=== PATIENT | female | born 1955 | race Caucasian/White ===

== ENCOUNTER → 2021-09-21 14:58 | Outpatient (CLI) | payer OTHER, SELFPAY ==
--- NOTE | 2021-09-21 | DI.MG.S_ITS ---
BILATERAL DIGITAL SCREENING MAMMOGRAM 3D/2D WITH CAD: 09/21/2021 CLINICAL: Routine screening. Family history of breast cancer. Comparison is made to exams dated: 10/30/2019 mammogram, 07/17/2018 mammogram, and 09/26/2016 mammogram - [facility]. There are scattered fibroglandular elements in both breasts. Current study was also evaluated with a Computer Aided Detection (CAD) system. There is a cluster of linear fine calcifications in the right breast at 1 o'clock anterior depth. No other significant masses, calcifications, or other findings are seen in either breast. IMPRESSION: INCOMPLETE: NEEDS ADDITIONAL IMAGING EVALUATION The cluster of linear fine calcifications in the right breast are indeterminate. Magnification and lateromedial views are recommended. Based on the Tyrer Cuzick model (a risk assessment model) the patient's lifetime risk is 12.9% and her 10 year risk is 6.6%. According to the ACR, ACS, and NCCN guidelines, an annual breast MRI exam along with mammogram is recommended if the patient's lifetime risk is 20% or greater. This exam was interpreted at Station ID: [id number]. NOTE: For mammograms, a report in lay terms will be sent to the patient. Approximately 15% of breast malignancies will not be visualized mammographically. In the management of a palpable breast mass, a negative mammogram must not discourage biopsy of a clinically suspicious lesion. Electronically Signed By: Anjali sotelo/:09/22/2021 10:30:57 letter sent: Additional Imaging Needed ACR BI-RADS Category 0: Incomplete 3340F
== END ==
PROVIDERS: PCP Family Medicine; Referring Provider Family Medicine; Visit Provider Family Medicine
DX: Z12.31 Encounter for screening mammogram for malignant neoplasm of breast (principal); Z78.0 Asymptomatic menopausal state; Z13.820 Encounter for screening for osteoporosis; Z80.3 Family history of malignant neoplasm of breast; M85.89 Other specified disorders of bone density and structure, multiple sites; Z92.23 Personal history of estrogen therapy
CPT/HCPCS: 77063; 77067; 77080

== ENCOUNTER → 2021-10-01 09:21 | Outpatient (CLI) | payer OTHER, SELFPAY ==
--- NOTE | 2021-10-01 | DI.MG.S_ITS ---
UNILATERAL RIGHT DIGITAL DIAGNOSTIC MAMMOGRAM 3D/2D WITH ADDITIONAL VIEWS: 10/01/2021 CLINICAL: Additional evaluation requested from prior study. Comparison is made to exams dated: 09/21/2021 mammogram - [facility], 10/30/2019 mammogram, 07/17/2018 mammogram, 09/26/2016 mammogram, and 07/02/2015 mammogram - [facility]. There are scattered fibroglandular elements in right breast. Possible calcifications in the right breast at 1 o'clock anterior depth. This is not seen in additional views. No other significant masses or calcifications are seen in the breast. IMPRESSION: NEGATIVE There is no mammographic evidence of malignancy. A 1 year screening mammogram is recommended. Exam findings were conveyed to the patient. Based on the Tyrer Cuzick model (a risk assessment model) the patient's lifetime risk is 12.9% and her 10 year risk is 6.6%. According to the ACR, ACS, and NCCN guidelines, an annual breast MRI exam along with mammogram is recommended if the patient's lifetime risk is 20% or greater. This exam was interpreted at Station ID: [id number]. NOTE: For mammograms, a report in lay terms will be sent to the patient. Approximately 15% of breast malignancies will not be visualized mammographically. In the management of a palpable breast mass, a negative mammogram must not discourage biopsy of a clinically suspicious lesion. Electronically Signed By: Femi Rosas M.D. slc/:10/01/2021 09:54:05 letter sent: Normal Exam ACR BI-RADS Category 1: Negative 3341F
== END ==
PROVIDERS: PCP Physician Assistant Medical; Referring Provider Physician Assistant Medical; Visit Provider Physician Assistant Medical
DX: R92.8 Other abnormal and inconclusive findings on diagnostic imaging of breast (principal)
CPT/HCPCS: 77065; G0279

== ENCOUNTER → 2022-11-17 12:42 | Outpatient (CLI) | payer OTHER, SELFPAY ==
--- NOTE | 2022-11-17 | DI.MG.S_ITS ---
BILATERAL DIGITAL SCREENING MAMMOGRAM 3D/2D WITH CAD: 11/17/2022 CLINICAL: Routine screening. Family history of breast cancer. Comparison is made to exams dated: 09/21/2021 mammogram - [facility], 10/30/2019 mammogram, and 07/17/2018 mammogram - [facility]. There are scattered areas of fibroglandular density in both breasts (category b / 25%-50% glandular tissue). Current study was also evaluated with a Computer Aided Detection (CAD) system. No significant masses, calcifications, or other findings are seen in either breast. There has been no significant interval change. IMPRESSION: NEGATIVE There is no mammographic evidence of malignancy. A 1 year screening mammogram is recommended. Based on the Tyrer Cuzick model (a risk assessment model) the patient's lifetime risk is 12.3% and her 10 year risk is 6.5%. According to the ACR, ACS, and NCCN guidelines, an annual breast MRI exam along with mammogram is recommended if the patient's lifetime risk is 20% or greater. This exam was interpreted at Station ID: [id number]. NOTE: For mammograms, a report in lay terms will be sent to the patient. Approximately 15% of breast malignancies will not be visualized mammographically. In the management of a palpable breast mass, a negative mammogram must not discourage biopsy of a clinically suspicious lesion. Electronically Signed By: Reyna darling/clint:11/17/2022 17:06:25 letter sent: Normal Exam ACR BI-RADS Category 1: Negative [id number]
== END ==
PROVIDERS: PCP Physician Assistant Medical; Referring Provider Physician Assistant Medical; Visit Provider Physician Assistant Medical
DX: Z12.31 Encounter for screening mammogram for malignant neoplasm of breast (principal); Z80.3 Family history of malignant neoplasm of breast
CPT/HCPCS: 77063; 77067

== ENCOUNTER → 2023-03-03 10:11 | Outpatient (CLI) | payer OTHER, SELFPAY ==
--- NOTE | 2023-03-03 | DI.NM.S_ITS ---
PROCEDURE: NM LOGAN PERF SPECT REST & STR Rest and exercise myocardial perfusion SPECT with gated imaging and ejection fraction RADIOPHARMACEUTICAL: 11.1 mCi Tc-99m sestamibi IV at rest and 24.7 mCi Tc-99m sestamibi IV at peak exercise. A one day-protocol was performed. INDICATIONS: Other chest pain TECHNIQUE: Radiopharmaceutical was injected at peak stress test, and also at rest. SPECT images were obtained. SPECT myocardial perfusion images were displayed in short axis, horizontal long axis, and vertical long axis views. Gated images were reviewed using niiu software. COMPARISON: None. CARDIAC STRESS: A standard Santana treadmill exercise tolerance test was performed by the patient under the supervision of an attending staff. The patient exercised for 3 minutes and 40 seconds; functional aerobic impairment (STEPHEN) is +41%. Hemodynamic data: There is normal blood pressure and heart rate response to exercise stress. Patient achieved 99% of maximum predicted heart rate at peak exercise. Symptoms: Patient denied chest pain during exercise. EKG: No diagnostic EKG changes of ischemia; no ectopy. FINDINGS: Raw data: There is good myocardial labeling by radiotracer. No significant motion artifacts. Nvbq-gj-lhanr ratio is 0.29 (normal is less than 0.38 for sestamibi tracer, and less than 0.50 for thallium tracer). Left ventricle function: Gated images demonstrate normal left ventricle wall thickening. No segmental wall motion abnormality. No transient ischemic dilation; TID is 0.57 (normal less than 1.3). The left ventricle resting end-diastolic volume is 66 mL. Left ventricle stress ejection fraction is 89%; normal values are above 45%. Myocardial perfusion: There is normal distribution of activity in the left and right ventricular myocardium. No fixed or reversible perfusion defects. IMPRESSION: Low risk, normal treadmill nuclear stress test 1) No perfusion evidence of ischemia or infarction. 2) Normal left ventricular size, wall motion, and systolic function (EF post stress 89%). 3) No ST changes during exercise or recovery. 4) No angina during the study. 5) Moderately reduced exercise tolerance (4.6METs, STEPHEN +41%). 99% of maximum predicted heart rate reached. Appropriate BP response to exercise. 6) No prior nuclear stress test available for comparison. Dictated by: Juan Daniel Sandoval MD on 03/03/2023 at 16:23 Approved by: Juan Daniel Sandoval MD on 03/03/2023 at 16:26
== END ==
LOC: NUCM 10:11
PROVIDERS: PCP Physician Assistant Medical; Referring Provider Physician Assistant Medical; Visit Provider Physician Assistant Medical
DX: R07.89 Other chest pain (principal)
CPT/HCPCS: 78452; 93017; A9502

== ENCOUNTER → 2023-04-14 14:06 | Outpatient (CLI) | payer OTHER, SELFPAY ==
--- NOTE | 2023-04-14 | DI.CT.S_ITS ---
PROCEDURE: CT ANGIO CHEST PE PROTOCOL INDICATIONS: DYSPNEA ON EXERTION TECHNIQUE: After the administration of intravenous contrast, 2 mm thick sections acquired from the pulmonary apices to the posterior costophrenic angles. 3-dimensional maximum intensity projection (MIP) coronal and sagittal reformats were then acquired through the thorax. For radiation dose reduction, the following was used: automated exposure control, adjustment of mA and/or kV according to patient size. COMPARISON: None. FINDINGS: Image quality: Diagnostic. Pulmonary arteries: Pulmonary arteries are normal in size, and demonstrate no intraluminal filling defects to suggest central pulmonary embolism. Lower Neck: No enlarged lymph nodes. Thyroid: No thyroid nodules which require sonographic follow up, per consensus guidelines. Axillae: No enlarged lymph nodes. Chest Wall: Unremarkable. Bones: Unremarkable. Lungs and Pleura: No pneumothorax or pleural effusions. No consolidation or pulmonary nodules. Geographic ground-glass radiopacities are present within the posterior medial aspect of the right lower lobe. There is platelike atelectasis at the left lung base. Heart: Heart size is normal. No pericardial effusion. Thoracic Vessels: No aortic aneurysm. Mediastinum and Jessie: No enlarged lymph nodes. Esophagus: No wall thickening. There is a small hiatal hernia. Upper Abdomen: Visualized upper abdomen solid organs and bowel loops appear normal. IMPRESSION: 1. No acute pulmonary embolus. 2. No pulmonary nodules which require follow-up. 3. Geographic ground-glass radiopacities at the right lung base which may be associated with air trapping. If further characterization is warranted, nonemergent high-resolution CT of the chest could be used. Dictated by: Yanet Schreiber M.D. on 04/14/2023 at 16:33 Approved by: Yanet Schreiber M.D. on 04/14/2023 at 16:38
[2023-04-14 15:43] LABS: Estimated Glomerular Filt Rate > 60 mL/min (>60)
== END ==
PROVIDERS: Radiology Diagnostic Radiology; PCP Physician Assistant Medical; Referring Provider Physician Assistant Medical; Visit Provider Physician Assistant Medical
DX: R06.09 Other forms of dyspnea (principal); K44.9 Diaphragmatic hernia without obstruction or gangrene
CPT/HCPCS: 71275; 82565

== ENCOUNTER → 2023-06-14 14:21 | Outpatient (CLI) | payer OTHER, SELFPAY ==
--- NOTE | 2023-06-14 14:24 | DI.CT.S_ITS ---
PROCEDURE: CT CHEST W CON INDICATIONS: Other forms of dyspnea TECHNIQUE: After the administration of intravenous contrast, 5 mm thick sections acquired from the pulmonary apices to the posterior costophrenic angles. 1 mm axial lung, 5 mm thick coronal and sagittal reformats and 7 mm axial MIP were acquired. For radiation dose reduction, the following was used: automated exposure control, adjustment of mA and/or kV according to patient size. COMPARISON: [facility], CT, CT ANGIO CHEST PE PROTOCOL, 04/14/2023, 16:15. FINDINGS: Image quality: Diagnostic. Lower Neck: No enlarged lymph nodes. Thyroid: No thyroid nodules which require sonographic follow up, per consensus guidelines. Axillae: No enlarged lymph nodes. Chest Wall: Unremarkable. Bones: Unremarkable. Lungs and Pleura: No pneumothorax or pleural effusions. Previously seen areas of ground-glass attenuation at the right lung base are not redemonstrated, likely related to non breath hold technique in subsegmental atelectasis on the prior exam. No acute consolidation. No suspicious pulmonary nodule that requires dedicated imaging follow-up. Heart: Heart size is normal. No pericardial effusion. Thoracic Vessels: The aorta and pulmonary arteries demonstrate normal size. Mediastinum and Jessie: No enlarged lymph nodes. Esophagus: No wall thickening. No hiatal hernia. Upper Abdomen: Visualized upper abdomen solid organs and bowel loops appear normal. IMPRESSION: No acute abnormality identified in the chest. Previously seen areas of ground-glass attenuation of the right lung base not seen on the current exam, although air trapping is not excluded on this single inspiratory phase CT. Approved by: Aaron Escobedo M.D. on 06/14/2023 at 21:21
[2023-06-14 14:45] LABS: Estimated Glomerular Filt Rate > 60 mL/min (>60)
== END ==
LOC: CT 14:22
PROVIDERS: Radiology Diagnostic Radiology; PCP Physician Assistant Medical; Referring Provider Physician Assistant Medical; Visit Provider Physician Assistant Medical
DX: R06.09 Other forms of dyspnea (principal)
CPT/HCPCS: 36415; 71260; 82565; Q9967

== ENCOUNTER → 2023-11-21 12:53 | Outpatient (CLI) | payer OTHER, SELFPAY ==
--- NOTE | 2023-11-21 12:54 | DI.MG.S_ITS ---
BILATERAL DIGITAL SCREENING MAMMOGRAM 3D/2D WITH CAD: 11/21/2023 CLINICAL: Routine screening. Family history of breast cancer. Comparison is made to exams dated: 11/17/2022 mammogram, 09/21/2021 mammogram - [facility], 10/30/2019 mammogram, 07/02/2015 mammogram, and 07/17/2018 mammogram - [facility]. There are scattered areas of fibroglandular density (category b / 25%-50% glandular tissue). Current study was also evaluated with a Computer Aided Detection (CAD) system. No significant masses, calcifications, or other findings are seen in either breast. There has been no significant interval change. IMPRESSION: NEGATIVE There is no mammographic evidence of malignancy. A 1 year screening mammogram is recommended. Based on the Tyrer Cuzick model (a risk assessment model) the patient's lifetime risk is 11.6% and her 10 year risk is 6.5%. According to the ACR, ACS, and NCCN guidelines, an annual breast MRI exam along with mammogram is recommended if the patient's lifetime risk is 20% or greater. This exam was interpreted at Station ID: [id number]. NOTE: For mammograms, a report in lay terms will be sent to the patient. Approximately 15% of breast malignancies will not be visualized mammographically. In the management of a palpable breast mass, a negative mammogram must not discourage biopsy of a clinically suspicious lesion. Electronically Signed By: Femi bird/clint:11/21/2023 15:53:10 letter sent: Normal Exam ACR BI-RADS Category 1: Negative
== END ==
PROVIDERS: PCP Physician Assistant Medical; Referring Provider Physician Assistant Medical; Visit Provider Physician Assistant Medical
DX: Z12.31 Encounter for screening mammogram for malignant neoplasm of breast (principal); Z80.3 Family history of malignant neoplasm of breast
CPT/HCPCS: 77063; 77067

== ENCOUNTER → 2024-06-06 12:39 | Outpatient (CLI) | payer OTHER, SELFPAY ==
--- NOTE | 2024-06-06 12:40 | DI.MRI.S_ITS ---
PROCEDURE: MR CERVICAL SPINE WO CON INDICATIONS: CERVICALGIA,RADICULOPATHY-CERVICAL TECHNIQUE: Noncontrast sagittal T1 spin echo and T2 fast spin echo, sagittal STIR, foraminal oblique sagittal T2 fast spin echo, and axial gradient echo or T2 fast spin echo through the cervical spine. COMPARISON: None. FINDINGS: Image quality: Excellent Straightening of the cervical spine. Mild anterolisthesis of C2 on C3. Mild retrolisthesis of C4 on C5. Mild anterolisthesis of C6 on C7, C7 on T1, T1 on T2 and T2 on T3 and T3 on T4. Vertebral body height of the cervical spine are well maintained. Multilevel mild fibrovascular endplate change, most pronounced at C6-7. Multilevel disc bulge and disc desiccation. Cord signal: Unremarkable C2-3: Moderate right, severe left facet arthropathy. No central canal stenosis. No neural foraminal stenosis. C3-4: Moderate bilateral facet arthropathy. Posterior disc uncovering, resulting in mass effect on the ventral cord. Moderate central canal stenosis. Severe right neural foraminal stenosis. No left neural foraminal stenosis. C4-5: Posterior disc osteophyte complex, asymmetric to the right. Severe central canal stenosis. Bilateral uncovertebral arthropathy. Severe right neural foraminal stenosis. No left neural foraminal stenosis. C5-6: Posterior disc osteophyte complex. Severe central canal stenosis. Bilateral uncovertebral arthropathy. Severe right, moderate left neural foraminal stenosis. C6-7: Posterior disc osteophyte complex. Moderate central canal stenosis. Mild right neural foraminal stenosis. No left neural foraminal stenosis. C7-T1: Posterior disc osteophyte complex. Mild central canal stenosis. No neural foraminal stenosis. Other soft tissue findings: Unremarkable IMPRESSION: 1. Multilevel degenerative changes of the cervical spine, with severe central canal stenosis at C4-5 and C5-6. 2. Multilevel up to severe neural foraminal stenosis as described above. Dictated by: Anna Pandey M.D. on 06/06/2024 at 15:26 Approved by: Anna Pandey M.D. on 06/06/2024 at 15:37
== END ==
PROVIDERS: PCP Physician Assistant Medical; Referring Provider Physician Assistant Medical; Visit Provider Physician Assistant Medical
DX: M48.02 Spinal stenosis, cervical region (principal); M47.22 Other spondylosis with radiculopathy, cervical region; M54.2 Cervicalgia
CPT/HCPCS: 72141

== ENCOUNTER → 2024-06-13 11:31 | Outpatient (CLI) | payer OTHER, SELFPAY ==
--- NOTE | 2024-06-13 11:32 | DI.RAD.S_ITS ---
PROCEDURE: XR THORACIC SPINE 3V INDICATIONS: RIB PAIN TECHNIQUE: 3 views of the thoracic spine were acquired. COMPARISON: None. FINDINGS AND IMPRESSION: Possible age-indeterminate superior endplate deformity at T5. No traumatic subluxation. Mild overall spondylosis with mostly disc space height loss and osteophytes. No suspicious soft tissue findings. Aortic calcifications are seen. If there is high concern for further derangement, consider MRI evaluation. Dictated by: Jg Baldwin M.D. on 06/13/2024 at 13:16 Approved by: Jg Baldwin M.D. on 06/13/2024 at 13:17
== END ==
PROVIDERS: PCP Physician Assistant Medical; Referring Provider Physical Medicine & Rehabilitation; Visit Provider Physical Medicine & Rehabilitation
DX: M47.814 Spondylosis without myelopathy or radiculopathy, thoracic region (principal); I70.0 Atherosclerosis of aorta; R07.81 Pleurodynia
CPT/HCPCS: 72072

== ENCOUNTER → 2024-07-02 13:02 | Outpatient (CLI) | payer OTHER, SELFPAY ==
--- NOTE | 2024-07-02 13:03 | DI.MRI.S_ITS ---
PROCEDURE: MR THORACIC SPINE WO CON INDICATIONS: T 5 fx TECHNIQUE: Noncontrast sagittal T1 spine echo and T2 fast spin echo, sagittal STIR, and T2 fast spin echo through the thoracic spine. COMPARISON: [facility], CR, XR THORACIC SPINE 3V, 06/13/2024, 11:28. FINDINGS: Image quality: Excellent. Alignment and Curvature: There is normal bony alignment. Bone Marrow: Marrow is of normal overall signal. No acute vertebral body compression fractures. Prior radiographic appearance of T5 likely related to superimposed osseous structures. Mild multilevel degenerative endplate changes. Spinal Cord: Visualized spinal cord is normal in size and signal. Paraspinous Soft Tissues: No paravertebral masses. Miscellaneous: On axial images, central canal and foramina appear widely patent at all scanned levels. IMPRESSION: 1. No acute vertebral body compression fracture. Prior radiographic appearance likely related to superimposed osseous structures. 2. Mild multilevel spondylosis without significant spinal canal stenosis or neural foraminal narrowing. Approved by: Aaron Escobedo M.D. on 07/02/2024 at 16:46
== END ==
LOC: MRI 13:03
PROVIDERS: Family Provider Physician Assistant Medical; PCP Physician Assistant Medical; Referring Provider Physician Assistant Medical; Visit Provider Physical Medicine & Rehabilitation
DX: S22.000A Wedge compression fracture of unspecified thoracic vertebra, initial encounter for closed fracture (principal); M47.814 Spondylosis without myelopathy or radiculopathy, thoracic region
CPT/HCPCS: 72146

== ENCOUNTER → 2024-08-08 13:39 | Outpatient (CLI) | payer OTHER, SELFPAY | LOC: PHYS 13:40 | PROVIDERS: Family Provider Physician Assistant Medical; PCP Physician Assistant Medical; Referring Provider Physical Medicine & Rehabilitation; Visit Provider Physical Medicine & Rehabilitation | DX: M48.02 Spinal stenosis, cervical region (principal); M54.12 Radiculopathy, cervical region | CPT/HCPCS: 95885; 95886; 95912 ==

== ENCOUNTER 2024-09-23 13:00 | Outpatient (RCR) | payer OTHER, SELFPAY ==
--- NOTE | 2024-08-22 18:48 | PT.OIE ---
Current Diagnoses Spinal stenosis, cervical region (08/22/24) Radiculopathy, cervical region (08/22/24) Past Medical History (Last Updated 06/17/24 @ 14:16 by Angel Sahni DO) PMR (polymyalgia rheumatica) Spinal stenosis of cervical region with radiculopathy Thoracic compression fracture Visit Care Team Role Provider Type Kathy Garza PA-C Family Provider Non-Staff Primary Care Provider Specialty: Medical Address: [address] [place] [address] [address], [place], [address] Email: Angel Sahni DO Attending Provider Physician Referring Provider Specialty: Interventional Radiology Physiatry Pain Management Address: [address], [place], [address] Email: [email or web address] Physical Therapy Initial Evaluation PT-OP-A Visit Information Start: 08/19/24 19:21 Freq: Status: Active Protocol: Document 08/22/24 11:38 LRN (Rec: 08/22/24 12:35 LRN Laptop) Out-Patient Physical Therapy Visit Information Visit Information Visit Type Initial Evaluation Visit Start Time 11:38 Visit Stop Time 12:29 Visit Number 1 Evaluation Information Evaluation Date 08/22/24 Precautions Precautions 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 PT-OP-B Current Condition Start: 08/19/24 19:21 Freq: Status: Active Protocol: Document 08/22/24 11:38 LRN (Rec: 08/22/24 12:35 LRN Laptop) Current Condition History of Current Condition Onset Date Neck pain 4 wks ago, R shoulder pain 2-3 yrs ago. Current Complaints R shoulder pain standing and neck pain looking left, up or down. History of Current R shoulder pain started the past 2-3 yrs of insidious Condition onset after standing for awhile, a dull ache that worsens until she sit or lays back against a back rest , or lays down. L sided neck pain for the past several weeks turning to the L catches on the L side causing her to stop turning her head, a quick sharp pain, followed by a dull pain. Looking up and down causes a dull pain. Retired, [employer] business trainer for a medical program, running the legal receptionist office. Prior Treatments and CT scan and X-rays - Wedge compression fracture of T5- Tests T6 vertebra and spinal stenosis cervical spine. EMG - 1 wk ago (was told it was normal). Future Testing and Appt with Dr. Sahni September 2024 for follow up on nevve Treatments Planned conduction EMG. Treatment Goals Patient/Caregiver Pt goals: Goals Be able to look left driving or as passenger looking back to see grandson w/o sharp pain. Educated in method to reduce strain on the neck with reading. Be able to walk around to shop for greater than 20 minutes before back hurts requiring her to go back to her car. Be able to go into [employer] for shopping for 15' or more. Personal Factors Other Personal Prosthetic L eye; therefore must move head to see vs Factors That May eyes. Effect Therapy/ Inflammation R eye controlled by meds and antibiotic. Recovery Compression fx of T4-T5. PT-OP-C Subjective Start: 08/19/24 19:21 Freq: Status: Active Protocol: Document 08/22/24 11:38 LRN (Rec: 08/22/24 12:35 LRN Laptop) Patient Questionnaires Neck Disability Index NDI Score 10 Neck Disability 20 to 39% Impaired (Score 10-19) Index Impairment OP-PT Pain Assessment Pain Assessment Grid Paper Pain Yes Assessment Grid Completed Location R shoulder Pain Location Posterior shdr down spine to medial border of scapula Details Intensity 4 Scale Used Numeric (0 - 10) Description Aching Frequency Constant L neck Pain Location L lower lateral side of neck and posteriorly Details Intensity 6 Scale Used Numeric (0 - 10) Description Aching,Dull,Sharp,Stabbing Frequency Intermittent Pain Duration Sharp is quick, dull aching is lingering pain PT-OP-H Neuro Start: 08/19/24 19:21 Freq: Status: Active Protocol: Document 08/22/24 11:38 LRN (Rec: 08/22/24 12:35 LRN Laptop) Sensation Evaluation Comments Summary Comments Tingling in the L hand (dorsal and volar), sometimes tingling down the outside of the L arm. PT-OP-J Posture/Palpation/Skin Start: 08/19/24 19:21 Freq: Status: Active Protocol: Document 08/22/24 11:38 LRN (Rec: 08/22/24 12:35 LRN Laptop) Posture Evaluation Position Standing T-Spine Posture Increased Kyphosis L-Spine Posture Increased Lordosis,Shifted Right Pelvis Posture Anteriorly Tilted Knee Posture (L) Genu Valgus,(R) Genu Valgus Ankle/Foot Posture (L) Calcaneal Eversion,(R) Calcaneal Eversion Palpation Assessment Location Neck Palpation Location Tender at L UT w/passive neck R SB, and mildly R UT w/ passive L SB Palpation Findings Tenderness Palpation Details Tight R upper cerivcal with rotation and L lower cervicals with rotation. PT-OP-K Range of Motion Start: 08/19/24 19:21 Freq: Status: Active Protocol: Document 08/22/24 11:38 LRN (Rec: 08/22/24 12:35 LRN Laptop) Cervical Spine Range of Motion Cervical Spine Active Degrees Testing Position Sitting Flexion 16 Extension 40 Rotation Left 45 Rotation Right 38 Lateral Flexion Left 15 Lateral Flexion 20 Right PT-OP-M Strength Start: 08/19/24 19:21 Freq: Status: Active Protocol: Document 08/22/24 11:38 LRN (Rec: 08/22/24 12:35 LRN Laptop) Cervical Spine Strength Cervical Spine Manual Muscle Testing Testing Position Sitting Comments Generally 5/5 PT-OP-Q Treatments Start: 08/19/24 19:21 Freq: Status: Active Protocol: Document 08/22/24 11:38 LRN (Rec: 08/22/24 12:35 LRN Laptop) Therapeutic Exercises Supine Exercises Cervical AROM Supine Exercise Name Rotation & SB Side bilateral Reps/Minutes Short hold stretch not into pain x 3 Self-Care/Home Management Treatment Education Other Education Discussed results of evaluation, goals, treatment, and plan of care (POC) with pt; pt agreeable to evaluation, goals, treatment and POC. Activities Self-Care/Home Issued & reviewed HEP: C. AROM - rotation, SB stretch Management with caution to not stretch/move into pain. Activities PT-OP-T Assessment and Plan Start: 08/19/24 19:21 Freq: Status: Active Protocol: Document 08/22/24 11:38 LRN (Rec: 08/22/24 12:35 LRN Laptop) Physical Therapy Assessment Rehab Potential Rehabilitation Excellent Potential Evaluation Complexity Number of Personal 3 or More Factors/ Comorbidities Number of Body 4 or More Systems Impaired Clinical Evolving Presentation at Evaluation Impairments Impairments Activity Tolerance,Pain,Posture,ROM,Soft Tissue Mobility,Strength,Transfers Goals Three Impairment Decreased tolerance to walking activities (15' max at [employer], 20' grocery) Short Term Goal (STG Be able to go into [employer] for shopping for 15' or more. ) STG Duration 10/03/24 Clinical Pharmacy Coordinator Goal (LTG) Be able to walk around to shop for greater than 20 minutes before back hurts requiring her to go back to her car. LTG Duration 11/14/24 Two Impairment Decreased neck mobility due to sharp pain w/L rot. Short Term Goal (STG Educated in method to reduce strain on the neck with ) reading. STG Duration 10/03/24 Clinical Pharmacy Coordinator Goal (LTG) Be able to look left driving or as passenger looking back to see grandson w/o sharp pain. LTG Duration 11/14/24 One Impairment Lacks appropriate self care HEP. Short Term Goal (STG Pt will be educated in self care pain management to ) help reduce upper back pain with onset. STG Duration 10/03/24 Clinical Pharmacy Coordinator Goal (LTG) Pt will be independent and consistent with a self care HEP for neck and upper back/shoulder ex's. LTG Duration 11/14/24 Assessment Summary Assessment Pt is a 69 yo female who presents with R shoulder pain, probably from from Wedge compression fracture of T5-T6 vertebra and spinal stenosis, also with EMG noted numbness and tingling in the hands from nerve at the elbow and not the neck. Cervical R rot & L SB limited. The pt will benefit from skilled physical therapy to improve posture, strength, joint mobility (cervical spine) and education for self care to reduce pain and improve function. Physical Therapy Plan Frequency and Duration Frequency of 2x/Week Treatment Duration of 12 treatment (weeks) Plan of Care Start 08/22/24 Date Plan of Care End 11/14/24 Date Therapeutic Interventions Therapeutic Home Exercise Program,Manual Therapy,Neuromuscular Re- Interventions education,Self-Care/Home Management,Soft Tissue Mobilization,Taping,Therapeutic Activities,Therapeutic Exercises Modalities Cold Pack/Ice Massage,Hot Packs,Ultrasound Next Visit Focus/Plan Next Note Type Treatment Note Next Visit Plan Next: Assess shoulder strength, Transfer training, Initiate thoracic ext exercise (supine), shoulder ROM, and cervical mobility ex's. Manual: Gentle cervical stretching and traction to assess change in hand sensation. Self care: Hot/cold treatment at elbows if appropriate. Pt educated in pain management ( cyotherapy, MH) for upper back pain. POC: Pt education (pain mgmt, HEP), Manual therapy ( STM/?JMT cervical spine), Therapeutic Exercises (to improve upper back posture & strength), Therapeutic Activities (transfers, ADLs, body mechanics), Neuromuscular Reeducation.
--- NOTE | 2024-08-22 18:48 | PT.OPPOC ---
Physical, Occupational & Speech Therapy At [facility] Current Diagnoses Spinal stenosis, cervical region (08/22/24) Radiculopathy, cervical region (08/22/24) Visit Care Team Role Provider Type Kathy Garza PA-C Family Provider Non-Staff Primary Care Provider Specialty: Medical Address: [address], [place], [address] Email: Angel Sahni DO Attending Provider Physician Referring Provider Specialty: Interventional Radiology Physiatry Pain Management Address: [address], [place], [address] Email: [email or web address] Plan Of Care PT-OP-B Current Condition Start: 08/19/24 19:21 Freq: Status: Active Protocol: Document 08/22/24 11:38 LRN (Rec: 08/22/24 12:35 LRN Laptop) Current Condition History of Current Condition Onset Date Neck pain 4 wks ago, R shoulder pain 2-3 yrs ago. Current Complaints R shoulder pain standing and neck pain looking left, up or down. History of Current R shoulder pain started the past 2-3 yrs of insidious Condition onset after standing for awhile, a dull ache that worsens until she sit or lays back against a back rest , or lays down. L sided neck pain for the past several weeks turning to the L catches on the L side causing her to stop turning her head, a quick sharp pain, followed by a dull pain. Looking up and down causes a dull pain. 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 Prior Treatments and CT scan and X-rays - Wedge compression fracture of T5- Tests T6 vertebra and spinal stenosis cervical spine. EMG - 1 wk ago (was told it was normal). Future Testing and Appt with Dr. Sahni September 2024 for follow up on nevve Treatments Planned conduction EMG. Treatment Goals Patient/Caregiver Pt goals: Goals Be able to look left driving or as passenger looking back to see grandson w/o sharp pain. Educated in method to reduce strain on the neck with reading. Be able to walk around to shop for greater than 20 minutes before back hurts requiring her to go back to her car. Be able to go into [employer] for shopping for 15' or more. Personal Factors Other Personal Prosthetic L eye; therefore must move head to see vs Factors That May eyes. Effect Therapy/ Inflammation R eye controlled by meds and antibiotic. Recovery Compression fx of T4-T5. PT-OP-T Assessment and Plan Start: 08/19/24 19:21 Freq: Status: Active Protocol: Document 08/22/24 11:38 LRN (Rec: 08/22/24 12:35 LRN Laptop) Physical Therapy Assessment Rehab Potential Rehabilitation Excellent Potential Evaluation Complexity Number of Personal 3 or More Factors/ Comorbidities Number of Body 4 or More Systems Impaired Clinical Evolving Presentation at Evaluation Impairments Impairments Activity Tolerance,Pain,Posture,ROM,Soft Tissue Mobility,Strength,Transfers Goals Three Impairment Decreased tolerance to walking activities (15' max at [employer], 20' grocery) Short Term Goal (STG Be able to go into [employer] for shopping for 15' or more. ) STG Duration 10/03/24 Metal Trades Instructor Goal (LTG) Be able to walk around to shop for greater than 20 minutes before back hurts requiring her to go back to her car. LTG Duration 11/14/24 Two Impairment Decreased neck mobility due to sharp pain w/L rot. Short Term Goal (STG Educated in method to reduce strain on the neck with ) reading. STG Duration 10/03/24 Correction Goal (LTG) Be able to look left driving or as passenger looking back to see grandson w/o sharp pain. LTG Duration 11/14/24 One Impairment Lacks appropriate self care HEP. Short Term Goal (STG Pt will be educated in self care pain management to ) help reduce upper back pain with onset. STG Duration 10/03/24 Metal Trades Instructor Goal (LTG) Pt will be independent and consistent with a self care HEP for neck and upper back/shoulder ex's. LTG Duration 11/14/24 Assessment Summary Assessment Pt is a 69 yo female who presents with R shoulder pain, probably from from Wedge compression fracture of T5-T6 vertebra and spinal stenosis, also with EMG noted numbness and tingling in the hands from nerve at the elbow and not the neck. Cervical R rot & L SB limited. The pt will benefit from skilled physical therapy to improve posture, strength, joint mobility (cervical spine) and education for self care to reduce pain and improve function. Physical Therapy Plan Frequency and Duration Frequency of 2x/Week Treatment Duration of 12 treatment (weeks) Plan of Care Start 08/22/24 Plan of Care End 11/14/24 Date Therapeutic Interventions Therapeutic Home Exercise Program,Manual Therapy,Neuromuscular Re- Interventions education,Self-Care/Home Management,Soft Tissue Mobilization,Taping,Therapeutic Activities,Therapeutic Exercises Modalities Cold Pack/Ice Massage,Hot Packs,Ultrasound Next Visit Focus/Plan Next Note Type Treatment Note Next Visit Plan Next: Assess shoulder strength, Transfer training, Initiate thoracic ext exercise (supine), shoulder ROM, and cervical mobility ex's. Manual: Gentle cervical stretching and traction to assess change in hand sensation. Self care: Hot/cold treatment at elbows if appropriate. Pt educated in pain management ( cyotherapy, MH) for upper back pain. POC: Pt education (pain mgmt, HEP), Manual therapy ( STM/?JMT cervical spine), Therapeutic Exercises (to improve upper back posture & strength), Therapeutic Activities (transfers, ADLs, body mechanics), Neuromuscular Reeducation. Plan of Care Dates Plan of Care Start Date 08/22/24 Plan of Care End Date 11/14/24 Electronically Signed by: Yanet Segura, PT 08/22/24 [id number] If you are in agreement with this Plan of Care, please return a signed and dated copy. I have reviewed this Plan of Care and certify that the skilled therapy services above are required to meet the patient?s needs. Physician Signature Date Printed Name and Credentials Clinical Instructor Signature Printed Name and Credentials
--- NOTE | 2024-08-27 16:08 | PT.OTN ---
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 PT-OP-B Current Condition Start: 08/19/24 19:21 Freq: Status: Active Protocol: Document 08/22/24 11:38 LRN (Rec: 08/22/24 12:35 LRN Laptop) Current Condition History of Current Condition Onset Date Neck pain 4 wks ago, R shoulder pain 2-3 yrs ago. Current Complaints R shoulder pain standing and neck pain looking left, up or down. History of Current R shoulder pain started the past 2-3 yrs of insidious Condition onset after standing for awhile, a dull ache that worsens until she sit or lays back against a back rest , or lays down. L sided neck pain for the past several weeks turning to the L catches on the L side causing her to stop turning her head, a quick sharp pain, followed by a dull pain. Looking up and down causes a dull pain. Retired, [employer] field trainer for a medical program, running the medical reception office. Prior Treatments and CT scan and X-rays - Wedge compression fracture of T5- Tests T6 vertebra and spinal stenosis cervical spine. EMG - 1 wk ago (was told it was normal). Future Testing and Appt with Dr. Sahni September 2024 for follow up on nevve Treatments Planned conduction EMG. Treatment Goals Patient/Caregiver Pt goals: Goals Be able to look left driving or as passenger looking back to see grandson w/o sharp pain. Educated in method to reduce strain on the neck with reading. Be able to walk around to shop for greater than 20 minutes before back hurts requiring her to go back to her car. Be able to go into [employer] for shopping for 15' or more. Personal Factors Other Personal Prosthetic L eye; therefore must move head to see vs Factors That May eyes. Effect Therapy/ Inflammation R eye controlled by meds and antibiotic. Recovery Compression fx of T4-T5. PT-OP-C Subjective Start: 08/19/24 19:21 Freq: Status: Active Protocol: Document 08/27/24 13:01 LRN (Rec: 08/27/24 13:49 LRN Laptop) OP-PT Subjective Patient Comments Patient Comments States the pain that she reported was on the L side is actually down the center of the spine. She is leaving on 09/04/24, and she is waiting to be approved for an injection. Feels like she has loss of podiatric surgeon strengt Has pain in neck with movement. PT-OP-H Neuro Start: 08/19/24 19:21 Freq: Status: Active Protocol: Document 08/22/24 11:38 LRN (Rec: 08/22/24 12:35 LRN Laptop) Sensation Evaluation Comments Summary Comments Tingling in the L hand (dorsal and volar), sometimes tingling down the outside of the L arm. PT-OP-J Posture/Palpation/Skin Start: 08/19/24 19:21 Freq: Status: Active Protocol: Document 08/22/24 11:38 LRN (Rec: 08/22/24 12:35 LRN Laptop) Posture Evaluation Position Standing T-Spine Posture Increased Kyphosis L-Spine Posture Increased Lordosis,Shifted Right Pelvis Posture Anteriorly Tilted Knee Posture (L) Genu Valgus,(R) Genu Valgus Ankle/Foot Posture (L) Calcaneal Eversion,(R) Calcaneal Eversion Palpation Assessment Location Neck Palpation Location Tender at L UT w/passive neck R SB, and mildly R UT w/ passive L SB Palpation Findings Tenderness Palpation Details Tight R upper cerivcal with rotation and L lower cervicals with rotation. PT-OP-K Range of Motion Start: 08/19/24 19:21 Freq: Status: Active Protocol: Document 08/22/24 11:38 LRN (Rec: 08/22/24 12:35 LRN Laptop) Cervical Spine Range of Motion Cervical Spine Active Degrees Testing Position Sitting Flexion 16 Extension 40 Rotation Left 45 Rotation Right 38 Lateral Flexion Left 15 Lateral Flexion 20 Right PT-OP-M Strength Start: 08/19/24 19:21 Freq: Status: Active Protocol: Document 08/27/24 13:01 LRN (Rec: 08/27/24 13:49 LRN Laptop) Shoulder Strength Shoulder Manual Muscle Testing Right Flexion 4 Good Comments Strength is 5/5 except as indicated above. Left Flexion 4 Good Comments Strength is 5/5 except as indicated above. Elbow/Forearm Strength Elbow and Forearm Manual Muscle Testing Right Flexion (C6) 5 Normal Left Flexion (C6) 5 Normal Extension (C7) 5 Normal Wrist Strength Wrist Manual Muscle Testing Right Comments Strength is 5/5 Left Comments Strength is 5/5 Hand Cage Manager/Pinch Strength Hand Dominance Hand Dominance Right Hand Strength Right Comments Cage Manager strength in kgs: R hand is 9, 8, 9 = 8.67 kgs avg podiatric surgeon (22.5 avg norm) Left Comments Cage Manager strength in kgs: L hand is 10.5, 19, 9 = 9.6 kgs avg podiatric surgeon (18.6 avg norm) PT-OP-Q Treatments Start: 08/19/24 19:21 Freq: Status: Active Protocol: Document 08/27/24 13:01 LRN (Rec: 08/27/24 13:49 LR Laptop) Therapeutic Exercises Supine Exercises Latha T/S ext Supine Exercise Name Arm push into plinth for thoracic ext Reps/Minutes 10 SH x 10 Neck Elongation Reps/Minutes 5 SH x 15 Cervical AROM Supine Exercise Name Ext, rot. Reps/Minutes Ext 10x 3, Rot x 5 Comments Cued to move in painfree range Sitting Exercises Gripping ex Sitting Exercise Squeezing hand dynamometer with arm by side and elbow @ Name 90 deg's flex. Side bilateral Reps/Minutes x 3 each with resting inbetween squeezes Comments Pt is weaker in R dominant hand Wrist LATHA Sitting Exercise Flex, ext, UD, RD Name Reps/Minutes x 2 Comments MMT taken Elbow LATHA Sitting Exercise Flex, ext Name Reps/Minutes x 2 Comments MMT taken Shoulder LATHA Sitting Exercise Flex, AB, ER, IR Name Reps/Minutes x 2 Comments MMT taken Therapeutic Activity Therapeutic Activity Transfer sup<>sit Reps/Minutes 3' Comments Cued to keep neck elongated and not to twist spine. Manual Therapy Treatment Consent Patient gave verbal Yes consent for manual treatment Manual Traction Cervical Details Gentle manual axial and targeting C6-C7 Body Position Supine Reps/Duration 12' Comments No change in symptoms of the hands and ring/little finger tingling. Self-Care/Home Management Treatment Activities Self-Care/Home I/S pt to work on posture with neck elongation and Management sitting upright (no slumping). Pt to recognize Activities positions she may be in while traveling to problem solve how to position better to reduce stress on upper thoracic and cervical spine. PT-OP-T Assessment and Plan Start: 08/19/24 19:21 Freq: Status: Active Protocol: Document 08/27/24 13:01 LRN (Rec: 08/27/24 13:49 LRN Laptop) Physical Therapy Assessment Goals Three Impairment Decreased tolerance to walking activities (15' max at [employer], 20' grocery) Short Term Goal (STG Be able to go into [employer] for shopping for 15' or more. ) STG Duration 10/03/24 Mcfp Goal (LTG) Be able to walk around to shop for greater than 20 minutes before back hurts requiring her to go back to her car. LTG Duration 11/14/24 Two Impairment Decreased neck mobility due to sharp pain w/L rot. Short Term Goal (STG Educated in method to reduce strain on the neck with ) reading. 08/27/24: Pt I/S to prop elbows on surface for playing games on her phone and reading. STG Duration 10/03/24 (08/27/24: MET GOAL, review would be appropriate) Mcfp Goal (LTG) Be able to look left driving or as passenger looking back to see grandson w/o sharp pain. LTG Duration 11/14/24 One Impairment Lacks appropriate self care HEP. Short Term Goal (STG Pt will be educated in self care pain management to ) help reduce upper back pain with onset. STG Duration 10/03/24 Mcfp Goal (LTG) Pt will be independent and consistent with a self care HEP for neck and upper back/shoulder ex's. LTG Duration 11/14/24 Assessment Summary Assessment 69 yo female who presents with R shoulder pain and tingling in digits 4 & 5, probably from from Wedge compression fracture of T5-T6 vertebra and spinal stenosis and new report of herniated cervical discs. No change in fingers with gentle manual traction. Physical Therapy Plan Frequency and Duration Frequency of 2x/Week Treatment Duration of 12 treatment (weeks) Plan of Care Start 08/22/24 Date Plan of Care End 11/14/24 Date Next Visit Focus/Plan Next Note Type Treatment Note Next Visit Plan Next: HEP for her trip. Review transfer training and thoracic ext exercise (supine). Add shoulder ROM, and continue cervical mobility ex's. Manual: Gentle cervical stretching and traction to assess change in hand sensation. Self care education: Hot/cold treatment at elbows if appropriate. Pt education in pain management (cyotherapy, MH) for upper back pain. POC: Pt education (pain mgmt, HEP), Manual therapy ( STM/?JMT cervical spine), Therapeutic Exercises (to improve upper back posture & strength), Therapeutic Activities (transfers, ADLs, body mechanics), Neuromuscular Reeducation.
--- NOTE | 2024-09-23 16:32 | PT.OTN ---
Addendum entered and electronically signed by Yanet Segura, PT 09/23/24 16:35: Drag Seiner strength (in kgs): L hand: 12, 13, 12 (initially was 10.5, 19, 9); R hand: 10, 12, 11 (initially was 9, 8, 9) Original Note: Current Diagnoses Spinal stenosis, cervical region (09/23/24) Radiculopathy, cervical region (09/23/24) Physical Therapy Treatment Note PT-OP-A Visit Information Start: 08/19/24 19:21 Freq: Status: Active Protocol: Document 09/23/24 13:02 LRN (Rec: 09/23/24 13:52 LRN Laptop) Out-Patient Physical Therapy Visit Information Visit Information Visit Type Treatment Note Visit Note Oct 08, 2024 getting a shot in her neck. 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 PT-OP-B Current Condition Start: 08/19/24 19:21 Freq: Status: Active Protocol: Document 08/22/24 11:38 LRN (Rec: 08/22/24 12:35 LRN Laptop) Current Condition History of Current Condition Onset Date Neck pain 4 wks ago, R shoulder pain 2-3 yrs ago. Current Complaints R shoulder pain standing and neck pain looking left, up or down. History of Current R shoulder pain started the past 2-3 yrs of insidious Condition onset after standing for awhile, a dull ache that worsens until she sit or lays back against a back rest , or lays down. L sided neck pain for the past several weeks turning to the L catches on the L side causing her to stop turning her head, a quick sharp pain, followed by a dull pain. Looking up and down causes a dull pain. 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 Prior Treatments and CT scan and X-rays - Wedge compression fracture of T5- Tests T6 vertebra and spinal stenosis cervical spine. EMG - 1 wk ago (was told it was normal). Future Testing and Appt with Dr. Sahni September 2024 for follow up on nevve Treatments Planned conduction EMG. Treatment Goals Patient/Caregiver Pt goals: Goals Be able to look left driving or as passenger looking back to see grandson w/o sharp pain. Educated in method to reduce strain on the neck with reading. Be able to walk around to shop for greater than 20 minutes before back hurts requiring her to go back to her car. Be able to go into [employer] for shopping for 15' or more. Personal Factors Other Personal Prosthetic L eye; therefore must move head to see vs Factors That May eyes. Effect Therapy/ Inflammation R eye controlled by meds and antibiotic. Recovery Compression fx of T4-T5. PT-OP-C Subjective Start: 08/19/24 19:21 Freq: Status: Active Protocol: Document 09/23/24 13:02 LRN (Rec: 09/23/24 13:52 LRN Laptop) OP-PT Subjective Patient Comments Patient Comments States she didn't hve an exercise handout so she didn't do exercises while on vacation. No Neck or R shoulder pain, but is wearing pain patches for her fracture. Reports no tingling in L arm. c/o L lateral rib pain with latha T/S ext from pushing too hard with arms. PT-OP-H Neuro Start: 08/19/24 19:21 Freq: Status: Active Protocol: Document 08/22/24 11:38 LRN (Rec: 08/22/24 12:35 LRN Laptop) Sensation Evaluation Comments Summary Comments Tingling in the L hand (dorsal and volar), sometimes tingling down the outside of the L arm. PT-OP-J Posture/Palpation/Skin Start: 08/19/24 19:21 Freq: Status: Active Protocol: Document 08/22/24 11:38 LRN (Rec: 08/22/24 12:35 LRN Laptop) Posture Evaluation Position Standing T-Spine Posture Increased Kyphosis L-Spine Posture Increased Lordosis,Shifted Right Pelvis Posture Anteriorly Tilted Knee Posture (L) Genu Valgus,(R) Genu Valgus Ankle/Foot Posture (L) Calcaneal Eversion,(R) Calcaneal Eversion Palpation Assessment Location Neck Palpation Location Tender at L UT w/passive neck R SB, and mildly R UT w/ passive L SB Palpation Findings Tenderness Palpation Details Tight R upper cerivcal with rotation and L lower cervicals with rotation. PT-OP-K Range of Motion Start: 08/19/24 19:21 Freq: Status: Active Protocol: Document 08/22/24 11:38 LRN (Rec: 08/22/24 12:35 LRN Laptop) Cervical Spine Range of Motion Cervical Spine Active Degrees Testing Position Sitting Flexion 16 Extension 40 Rotation Left 45 Rotation Right 38 Lateral Flexion Left 15 Lateral Flexion 20 Right PT-OP-M Strength Start: 08/19/24 19:21 Freq: Status: Active Protocol: Document 08/27/24 13:01 LRN (Rec: 08/27/24 13:49 LRN Laptop) Shoulder Strength Shoulder Manual Muscle Testing Right Flexion 4 Good Comments Strength is 5/5 except as indicated above. Left Flexion 4 Good Comments Strength is 5/5 except as indicated above. Elbow/Forearm Strength Elbow and Forearm Manual Muscle Testing Right Flexion (C6) 5 Normal Left Flexion (C6) 5 Normal Extension (C7) 5 Normal Wrist Strength Wrist Manual Muscle Testing Right Comments Strength is 5/5 Left Comments Strength is 5/5 Hand Drag Seiner/Pinch Strength Hand Dominance Hand Dominance Right Hand Strength Right Comments Drag Seiner strength in kgs: R hand is 9, 8, 9 = 8.67 kgs avg watershed tender (22.5 avg norm) Left Comments Drag Seiner strength in kgs: L hand is 10.5, 19, 9 = 9.6 kgs avg watershed tender (18.6 avg norm) PT-OP-Q Treatments Start: 08/19/24 19:21 Freq: Status: Active Protocol: Document 09/23/24 13:02 LRN (Rec: 09/23/24 13:52 LRN Laptop) Therapeutic Exercises Supine Exercises Shoulder AROM Supine Exercise Name Flex, AB, ER/IR with Deep Cervical Neck flexors Side bilateral Reps/Minutes 10x each Comments No c/o pain Latha T/S ext Supine Exercise Name Arm push into plinth for thoracic ext Reps/Minutes 10 SH x 10 Comments Pain in L lateral ribcage region when pushing too hard Neck Elongation Reps/Minutes 10 SH x 10 Comments No c/o pain Cervical AROM Supine Exercise Name Rot Comments No c/o pain Therapeutic Activity Therapeutic Activity Transfer sup<>sit Reps/Minutes 10' Self-Care/Home Management Treatment Education Other Education Discussed POC, pt decided to be discharged today to her HEP Activities Self-Care/Home Issued & reviewed HEP: Shoulder AROM flex, AB, ER/IR Management Chest press and neck elongation. Activities . PT-OP-T Assessment and Plan Start: 08/19/24 19:21 Freq: Status: Active Protocol: Document 09/23/24 13:02 LRN (Rec: 09/23/24 13:52 LRN Laptop) Physical Therapy Assessment Goals Three Impairment Decreased tolerance to walking activities (15' max at [employer], 20' grocery) Short Term Goal (STG Be able to go into [employer] for shopping for 15' or more. ) 09/23/24: Pt has returned to shopping w/o pain. STG Duration 10/03/24 (09/23/24: MET GOAL) Tobacco Conditioner Goal (LTG) Be able to walk around to shop for greater than 20 minutes before back hurts requiring her to go back to her car. 09/23/24: Has been able to shop 20 minutes with sometimes upper back pain. LTG Duration 11/14/24 (09/23/24: Mostly met goal) Two Impairment Decreased neck mobility due to sharp pain w/L rot. Short Term Goal (STG Educated in method to reduce strain on the neck with ) reading. 08/27/24: Pt I/S to prop elbows on surface for playing games on her phone and reading. 09/23/24: Has been propping her arms up for reading and phone use and playing games to keep her head upright STG Duration 10/03/24 (08/27/24: MET GOAL) Fdc Goal (LTG) Be able to look left driving or as passenger looking back to see grandson w/o sharp pain. : Able to drive and look left or right w/o getting sharp pain. LTG Duration 11/14/24 (09/23/24: MET GOAL) One Impairment Lacks appropriate self care HEP. Short Term Goal (STG Pt will be educated in self care pain management to ) help reduce upper back pain with onset. 09/23/24: Pt has been educated in use of ice and she is using her own pain medication patch. STG Duration 10/03/24 (09/23/24: MET GOAL) Fdc Goal (LTG) Pt will be independent and consistent with a self care HEP for neck and upper back/shoulder ex's. 08/22/24 (late entry): HEP: C. SB & Rotation. 09/23/24: HEP: Shoulder AROM flex, AB, ER/IR Chest press and neck elongation. LTG Duration 11/14/24 (09/23/24: MET GOAL) Assessment Summary Assessment Pt 69 yo female who presented initially with R shoulder pain and tingling in the digits 4 & 5, wedge compression fracture of T5-T6 vertebra and spinal stenosis & recent herniated Cervical discs. Today the pt attends w/o complaints of R shoulder and hands pain and tingling. Her R dominant watershed tender strength is weaker than her L hand, but has improved since her return from a vacation trip to [place]. The pt has full priyanka shoulder ROM w/o pain and has been placed on a cervical and priyanka shoulder ROM program. She has upper back pain from her T5-T6 fracture when doing isometric trunk extension exercises. The pt has not been gardening and is being more aware of her head/neck posturing with her home activities (reading, phone use, and playing games with her grandson). The pt feels ready to be placed on a self care HEP since she is expecting to have an injection in her neck. Physical Therapy Plan Discharge Physical Therapy Discharge Comments The pt has met her goals, except with shopping she sometimes has upperback pain in the region of her T/S fractures and is being discharged to her HEP. Thank you for your referral.
== END 2024-09-26 10:00 | disposition home or self-care (01) ==
LOC: PHYS 13:00
PROVIDERS: Family Provider Physician Assistant Medical; PCP Physician Assistant Medical; Referring Provider Physical Medicine & Rehabilitation; Visit Provider Physical Medicine & Rehabilitation
DX: M48.02 Spinal stenosis, cervical region (principal); M54.12 Radiculopathy, cervical region
CPT/HCPCS: 97110; 97140; 97162; 97535

== ENCOUNTER 2024-10-08 09:12 | Outpatient (CLI) | payer OTHER, SELFPAY ==
[2024-10-08] VITALS (8 sets, daily range): BP systolic 123–147; BP diastolic 63–70; PULSE 62–71; RESP 16–169; TEMP 36.4; O2SAT 95–99
[2024-10-08] MEDS: MIDAZOLAM 2 MG/2 ML VIAL IV (10:33)
--- NOTE | 2024-10-08 10:52 | P.PCN_ITS ---
Date/Time/Diagnoses Date of procedure: 10/08/24 Time of procedure: 10:52 Pre-procedure diagnosis: 1. CERVICAL STENOSIS, 2. CERVICAL HNP WITH UPPER EXTREMITY RADICULAR FEATURES Post-procedure diagnosis: same Procedure Notes Procedure: 1. FLUORSCOPICALLY GUIDED CONTRAST CONTROLLED INTERLAMINAR EPIDURAL STEROID INJECTION - C6/7 TL GINA Indications: Albertina is referred by EUGENIA Garza for treatment of Cervical HNP with Upper Extremity Paresthesias. Physician: Angel Sahni Total Fluoroscopy time (seconds): 32 Total sedation minutes: 16 Complications: none Procedure in detail & Post-procedure care: FINDINGS Cervical Stenosis due to disc deterioration and nerve root irritation and nerve root irritation DESCRIPTION OF PROCEDURE Fluoroscopically guided, contrast-controlled C6/7 translaminar epidural steroid injection with conscious sedation. Following review of allergy and review of potential side effects and complications, including, but not necessarily limited to, infection, allergic reaction, local tissue breakdown, temporary as well as permanent nerve injury, stroke, paralysis, and possible , the patient indicated that patient understood and agreed to proceed. An informed consent document was signed by the patient, witnessed by a nurse, and placed in the patient's chart. Additionally, other treatment options including modalities, medications, and physical therapy were reviewed with the patient. After review of previous anaesthesic history and IV conscious sedation the patient was deemed safe to proceed with today?s procedure with IV conscious sedation as ASA class II designation. Safety time-out was performed to confirm patient ID, procedure to be performed and site of procedure. IV sedation was accomplished with a combination of 2mg of Versed administered by the RN after DO order, titrated to patient comfort during the course of the procedure while the patient remained responsive to all verbal commands. In the prone position, following sterile prep and drape of the cervical region, the C6/7 translaminar space was identified fluoroscopically. The skin was anesthetized via a 25-gauge 1.5-inch needle with 1% lidocaine solution. At this point, a 25-gauge, 2.5-inch short bevel spinal needle was atraumatically introduced and advanced under fluoroscopic guidance into epidural space at the C6/7 translaminar space. Depth was confirmed on lateral view. Radiological data, including multiple fluoroscopic views of the cervical spine, reveal a spinal needle at the C6/7 translaminar space. Lateral views then show placement of the needle in the epidural space. Subsequent views show contrast material flowing superiorly and inferiorly in the epidural space. DSA fluoroscopy with live contrast injection, once again, confirmed no vascular or intrathecal uptake. At this point, using loss of resistance technique with saline and air, the epidural space was entered. Following negative aspiration, injection of approximately 1.5 cc of Isovue-200 with live fluoroscopy in the AP view confirmed epidural flow in the epidural space without vascular or intrathecal uptake observed. Subsequently, a test dose of 1 cc of 1% lidocaine solution was injected and patient was observed for two minutes without signs or symptoms of complications, including abdominal pain, shortness of breath, bilateral upper or lower extremity weakness, nausea and vomiting, prior to steroid injection. At this point, 2cc or 20mg of dexamethasone was then injected without incident. The patient tolerated the procedure well without signs or symptoms of complica tions prior to being transferred to the recovery area for further monitoring, The patient was then transferred to the recovery area where they were observed for an appropriate period of time after the injection. The patient reported a VAS score of 6 prior to the procedure and a post-procedure VAS of 0. POST OP INSTRUCTIONS The patient was provided a Pain Log to continue to record their response to the target-specific procedure prior to follow-up visit with the referring provider. Additionally, specific post-injection care instructions and a contact number to our office were provided if concerns arise regarding possible complications associated with the procedure are suspected.
== END 2024-10-08 11:09 | disposition home or self-care (01) ==
LOC: RAD 09:12
PROVIDERS: Family Provider Physician Assistant Medical; PCP Physician Assistant Medical; Referring Provider Physical Medicine & Rehabilitation; Visit Provider Physical Medicine & Rehabilitation
DX: M48.02 Spinal stenosis, cervical region (principal); M50.123 Cervical disc disorder at C6-C7 level with radiculopathy
CPT/HCPCS: 62321; 99152; J1100; J2250

== ENCOUNTER → 2025-02-17 17:35 | Outpatient (CLI) | payer OTHER, SELFPAY ==
--- NOTE | 2025-02-17 17:40 | DI.RAD.S_ITS ---
PROCEDURE: XR WRIST RT MIN 3V INDICATIONS: PX TECHNIQUE: 4 views of the wrist were acquired. COMPARISON: None. FINDINGS: Bones: No fractures or dislocations. No suspicious bony lesions. 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 Soft tissues: No suspicious soft tissue calcifications. IMPRESSION: No acute bony abnormality. 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 Dictated by: Gatito Manriquez M.D. on 02/17/2025 at 21:05 Approved by: Gatito Manriquez M.D. on 02/17/2025 at 21:05
--- NOTE | 2025-02-17 17:40 | DI.RAD.S_ITS ---
PROCEDURE: XR WRIST LT MIN 3V INDICATIONS: PX TECHNIQUE: 4 views of the wrist were acquired. COMPARISON: None. FINDINGS: Bones: No fractures or dislocations. No suspicious bony lesions. 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 Diffuse osseous demineralization. Soft tissues: No suspicious soft tissue calcifications. IMPRESSION: No acute bony abnormality. 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 Dictated by: Gatito Manriquez M.D. on 02/17/2025 at 21:06 Approved by: Gatito Manriquez M.D. on 02/17/2025 at 21:06
== END ==
LOC: RAD 17:38
PROVIDERS: PCP Physician Assistant Medical; Referring Provider Internal Medicine Rheumatology; Visit Provider Internal Medicine Rheumatology
DX: M19.031 Primary osteoarthritis, right wrist (principal); M18.12 Unilateral primary osteoarthritis of first carpometacarpal joint, left hand; M25.531 Pain in right wrist; M25.532 Pain in left wrist
CPT/HCPCS: 73110